=== PATIENT | male | born 1995 | race Caucasian/White ===

== ENCOUNTER 2022-02-15 13:05 | Emergency (ER) | payer OTHER, SELFPAY ==
[2022-02-15 13:07] VITALS: BP 127/79; PULSE 91; RESP 13; TEMP 36.8; O2SAT 98; BMI 26.2
[2022-02-15 13:10] VITALS: PULSE 88
--- NOTE | 2022-02-15 13:13 | EKG12_ITS ---
Test Reason : FLUTTER Blood Pressure : / mmHG Vent. Rate : 081 BPM Atrial Rate : 081 BPM P-R Int : 148 ms QRS Dur : 078 ms QT Int : 332 ms P-R-T Axes : 043 016 037 degrees QTc Int : 385 ms Normal sinus rhythm Normal ECG Confirmed by LUZMA PLUMMER, AGUSTÍN ([id number]), editor managing director ZAY BRADFORD ([id number]) on 02/16/2022 8:46:56 AM Referred By: ABIOLA Confirmed By:AGUSTÍN SEGAL MD
--- NOTE | 2022-02-15 13:13 | RAD_ITS ---
INDICATION: chest pain EXAMINATION/TECHNIQUE: X-RAY - XR Chest 2 Views COMPARISON: None. FINDINGS: LINES/DEVICES: None. LUNGS: No consolidation, edema or effusion. No pneumothorax. MEDIASTINUM AND CARDIOVASCULAR STRUCTURES: Cardiac silhouette not enlarged. Central airways and mediastinal contour are unremarkable. BONES AND SOFT TISSUES: Unremarkable. RAD/Chest PA and Lateral IMPRESSION: No radiographic evidence of acute cardiopulmonary disease. Electronically Signed: Alfredo Carmichael MD at 14:05 EDT ,
--- NOTE | 2022-02-15 13:16 | EX.ED.DYSGE1 ---
HPI History of Present Illness Chief Complaint: Palpitations Informant: patient Narrative Narrative: Patient is a 26-year-old male denies any past medical history presenting with palpitations and near syncope. Patient states he was at work today when suddenly he felt that his heart was racing he felt like he was going to pass out. Episode lasted for approximately 15 minutes. He eventually called 911 to be brought in because the symptoms were not subsiding. He states last week he had a similar episode that lasted for approximately 40 seconds. He was driving at that time. He pulled the van over and stopped but once the palpitations resolved he felt better and did not seek further evaluation. Denies any shortness of breath. States otherwise has been feeling fine. Does get intermittent palpitations which has had his whole life but feels that may be more frequent over the past week or 2. Denies any other complaints at this time. Denies any family history of arrhythmia, syncope or sudden cardiac /unexplained especially at a young age. PFSH PFSH Medical History no medical history Home Medications potassium citrate 20 meq PO DAILY #10 tab 02/15/22 [Rx Last Taken Unknown] Allergy/AdvReac Type Severity Reaction Status Date / Time No Known Allergies Allergy Verified 02/15/22 13:11 Social History Smoking Status: Former smoker ROS ROS ED Constitutional Constitutional ED: Denies chills, fever(s) or sweats Eyes Eyes: Denies blurry vision ENT ENT ED: Denies rhinorrhea or sore throat Cardiovascular Cardiovascular: Reports palpitations and racing heartbeat; Denies chest pain Respiratory/Chest Respiratory/Chest: Denies dyspnea Gastrointestinal Gastrointestinal: Denies abdominal pain, nausea or vomiting Musculoskeletal Musculoskeletal: Denies arthralgias or myalgias Integumentary Denies rash Neurologic Neurologic: Denies headache(s) or weakness EXAM Physical Exam Const Vital Signs: 02/15/22 13:07 02/15/22 13:10 02/15/22 13:33 Temperature 98.3 F Temperature Source Temporal Pulse Rate 91 88 Respiratory Rate 13 Blood Pressure 127/79 H Blood Pressure Mean 95 Pulse Ox 98 Oxygen Delivery Method Room Air Room Air 02/15/22 14:24 02/15/22 15:00 Temperature Temperature Source Pulse Rate 81 68 Respiratory Rate 16 20 H Blood Pressure 127/76 H 127/70 H Blood Pressure Mean 93 89 Pulse Ox 98 96 Oxygen Delivery Method Room Air Room Air Positive well nourished and well developed General Appearance ED: well developed and NAD HEENT Reports moist mucous membranes Eyes PERRL and EOMs intact bilaterally Neck supple and no JVD Chest Wall inspection of chest normal Resp normal respiratory effort and clear to auscultation bilaterally Cardio regular rate, regular rhythm and no murmurs GI normal to inspection, nondistended, normoactive bowel sounds Back/Spine no CVA tenderness Extremity normal to inspection General Extremety ED: Negative for edema or tenderness General Extremity: Negative for edema Neuro oriented x3 Sensorium / Orientation: alert Motor Exam: Negative for general weakness Psych mental status grossly normal Skin no rashes or lesions noted and no wounds MDM MDM MDM Narrative Medical decision making narrative: Patient is evaluated for 2 episodes of near syncope and palpitations. He is normal sinus rhythm in the ER. Is pretty asymptomatic in the ER. Is found to have potassium of 2.8. I am unsure if this is causing his symptoms however his potassium was replaced in the ER. High since her troponin is checked x2. TSH is normal. Patient be discharged home with instructions to follow-up with primary care doctor for repeat check of his potassium. He is ordered a 48-hour Holter monitor. This is discussed with Dr. White. Patient is given return precautions. Discharged home in stable condition. Lab Data Attestation: I reviewed the patient's lab results. Labs: Laboratory Results - last 24 hr 02/15/22 02/15/22 02/15/22 13:29 13:29 13:29 WBC 6.5 RBC 5.34 Hgb 15.9 Hct 46.2 MCV 86.5 MCH 29.8 MCHC 34.4 RDW Std Deviation 40.0 RDW Coeff of Salazar 12.8 Plt Count 291 MPV 9.3 Immature Gran % (Auto) 0.300 Neut % (Auto) 59.2 Lymph % (Auto) 26.9 Bradley % (Auto) 10.3 H Eos % (Auto) 2.2 Baso % (Auto) 1.1 H Absolute Neuts (auto) 3.9 Absolute Lymphs (auto) 1.75 Nucleated RBC % 0 D-Dimer Quant (PE/DVT) < 0.27 L Sodium 143 Potassium 2.8 L Chloride 115 H Carbon Dioxide 22.0 Anion Gap 6 BUN 8 Creatinine 0.70 Estim Creat Clear Calc 163.67 Est GFR (MDRD) Af Amer 174 Est GFR (MDRD) Non-Af 144 BUN/Creatinine Ratio 11.4 Glucose 83 Calcium 7.1 L Magnesium 1.7 Troponin I High Sens TSH 0.51 02/15/22 13:29 WBC RBC Hgb Hct MCV MCH MCHC RDW Std Deviation RDW Coeff of Salazar Plt Count MPV Immature Gran % (Auto) Neut % (Auto) Lymph % (Auto) Bradley % (Auto) Eos % (Auto) Baso % (Auto) Absolute Neuts (auto) Absolute Lymphs (auto) Nucleated RBC % D-Dimer Quant (PE/DVT) Sodium Potassium Chloride Carbon Dioxide Anion Gap BUN Creatinine Estim Creat Clear Calc Est GFR (MDRD) Af Amer Est GFR (MDRD) Non-Af BUN/Creatinine Ratio Glucose Calcium Magnesium Troponin I High Sens < 3 L TSH Radiography Chest X-Ray - ED: 2 View, Read by ED Physician, Read by Radiologist and No Acute Disease Diagnostic Testing: Clinical Impression(s) from Imaging Studies Chest X-Ray 02/15/22 13:13 IMPRESSION: No radiographic evidence of acute cardiopulmonary disease. Electronically Signed: Alfredo Carmichael MD at 14:05 EDT Reading Location ID and State: [facility] / [place] Tel , Service support , Rhythm Strip Rhythm Strip: Sinus Rhythm Rate: 81 Ectopy: None EKG Initial EKG: Attestation: I personally reviewed and interpreted this EKG as follows: Interpretation: Sinus Rhythm Comments: Normal sinus rhythm at a rate of 81 Normal axis Normal intervals Normal ST segments Discharge Plan Triage Chief Complaint: Palpitations ED Provider: Micaela Crook Dx/Rx/DC Orders Clinical Impression: Palpitation, Hypokalemia Instructions: ED Hypokalemia, ED Palpitations Prescriptions: New potassium citrate 10 mEq (1,080 mg) tablet extended release 20 meq PO DAILY Qty: 10 RF: 0 Primary Care Provider: Kobe Zhu Referrals: Kobe Zhu MD [Primary Care Provider] - Disposition Disposition: Home, Self Care
[2022-02-15 13:36] LABS: Absolute Lymphocyte Count 1.75 X10^3/uL (0.83-4.51); Absolute Neutrophil Count 3.9 X10^3/uL (2.0-7.7); Basophil# 0.07 X10^3/uL; Basophil% 1.1 % (0-1); Eosinophil# 0.14 X10^3/uL; Eosinophils% 2.2 % (0-5); Hematocrit 46.2 % (40-54); Hemoglobin 15.9 g/dL (13.0-16.5); Lymphocyte # 1.75 X10^3/ul (0.83-4.51); Lymphocyte % 26.9 % (19-41); Mean Corp Hgb Conc 34.4 g/dL (32-36); Mean Corpuscular Hgb 29.8 pg (27.0-32.0); Mean Corpuscular Volume 86.5 fL (80-94); Mean Platelet Vol. 9.3 fl (6.2-12.0); Monocyte# 0.67 X10^3/uL; Monocyte% 10.3 % (0-10); NRBC Flagged by Analyzer 0 % (0-5); Neutrophil # 3.85 X10^3/uL (2.7-7.7); Neutrophil % 59.2 % (47-70); Platelet Count 291 K/mm3 (150-450); RBC Distribution Width CV 12.8 % (11.6-14.6); Red Blood Count 5.34 M/mm3 (4.6-6.2); White Blood Count 6.5 K/mm3 (4.4-11.0)
[2022-02-15 13:59] LABS: Anion Gap 6 (5-15); BUN 8 mg/dL (7-18); BUN/Creat Ratio 11.4 RATIO (10-20); Calcium,Total 7.1 mg/dL (8.5-10.1); Chloride 115 mmol/L (98-107); EST Glomerular Filtration Rate 144 mL/min (>60); Est Glom Filt Rate - Afr Amer 174 mL/min (>60); Estimated Creatinine Clearance 163.67 ml/min; Glucose 83 mg/dL (74-106); Magnesium 1.7 mg/dL (1.6-2.6); Potassium 2.8 mmol/L (3.5-5.1); Sodium Level 143 mmol/L (136-145); Thyroid Stim Hormone (TSH) 0.51 uIU/mL (0.358-3.74)
[2022-02-15 14:03] LABS: D-Dimer Quantitative (DVT/PE) < 0.27 FEU/ug/m (0.27-0.49)
[2022-02-15 14:24] VITALS: BP 127/76; PULSE 81; RESP 16; O2SAT 98
[2022-02-15] MEDS: Potassium Chloride Oral Tablet 20 MEQ 40 MEQ PO (14:27)
[2022-02-15 14:55] LABS: Troponin-I HS (w/2H Reflex) < 3 pg/mL (3.0-78.0)
[2022-02-15] MEDS: Potassium Chloride 10mEq/100mL 10 MEQ/100 ML IV.SOLN. 100 MEQ IV BOLUS (14:55)
[2022-02-15 15:00] VITALS: BP 127/70; PULSE 68; RESP 20; O2SAT 96
[2022-02-15 16:07] VITALS: BP 132/75
[2022-02-15 16:24] LABS: Troponin-I HS 3 pg/mL (3.0-78.0)
[2022-02-15 16:38] LABS: Reflex Troponin-HS? (from REC) Y
[2022-02-15 16:54] VITALS: BP 121/78; PULSE 79; RESP 16; O2SAT 98
== END 2022-02-15 16:54 | disposition home or self-care (01) ==
PROVIDERS: Emergency Provider Emergency Medicine; PCP Family Medicine; Visit Provider Emergency Medicine
DX: R00.2 Palpitations (principal); E87.6 Hypokalemia; Z87.891 Personal history of nicotine dependence
CPT/HCPCS: 71046; 80048; 83735; 84443; 84484; 85025; 85379; 93005; 96365; 99285; J7030; A4216

== ENCOUNTER → 2022-02-15 | Outpatient (CLI) | payer OTHER, SELFPAY | END | disposition home or self-care (01) | LOC: CVS 15:56 | PROVIDERS: PCP Family Medicine; Visit Provider Emergency Medicine | DX: R79.89 Other specified abnormal findings of blood chemistry (principal) | CPT/HCPCS: 93225; 93226 ==

== ENCOUNTER → 2022-03-16 | Outpatient (CLI) | payer OTHER, SELFPAY ==
--- NOTE | 2022-03-16 19:07 | CT_ITS ---
STUDY: CT BRAIN WITHOUT CONTRAST REASON FOR EXAM: Male, 26 years old. head trauma; syncope RADIATION DOSAGE (If Supplied By Facility): CTDIvol = ( 44.99 ) mGy, DLP = ( 796.11 ) mGycm TECHNIQUE: Transaxial CT imaging of the brain was performed without administration of intravenous contrast material. Individualized dose optimization techniques were used for this CT. COMPARISON: No relevant priors. FINDINGS: Normal soft tissue structures. Normal calvarium. Normal size ventricles and extra-axial spaces for the patient''s age. Normal white matter tracts of the cerebral hemispheres. Normal basal ganglia and thalami. Normal brainstem. Normal cerebellum. There is no intracranial hemorrhage. There are no findings of an acute ischemic infarction. Normal visualized paranasal sinuses. CT/Brain/Head without Contrast IMPRESSION: Normal unenhanced CT scan of the brain. Electronically Signed: Johan Busch MD at 23:34 EDT ,
== END | disposition home or self-care (01) ==
LOC: CT 19:06
PROVIDERS: PCP Family Medicine; Visit Provider Internal Medicine Cardiovascular Disease
DX: S09.90XA Unspecified injury of head, initial encounter (principal)
CPT/HCPCS: 70450